=== PATIENT | male | born 1960 | race Caucasian/White ===

== ENCOUNTER 2017-12-13 17:38 | Emergency (ER) | payer OTHER ==
[~2017-12-13] VITALS: Ht 172.7 cm; Wt 72.6 kg
[~2017-12-13 17:38] MED LIST: BUPRENORPHINE HC8 MG SL; BUPROPION HCL75 M1 PO; GABAPENTIN400 M2 PO; SUBUTEX
[2017-12-13 18:43] LABS: ABSOLUTE BASOPHIL COUNT 0 /CUMM (0.0-0.2); ABSOLUTE EOSINOPHIL COUNT 0.1 /CUMM (0.0-0.7); ABSOLUTE GRANULOCYTE CT 3.5 /CUMM (1.4-6.5); ABSOLUTE LYMPH COUNT 1.7 /CUMM (1.2-3.4); ABSOLUTE MONOCYTE COUNT 0.4 /CUMM (0.10-0.60); BASOPHIL % 0.4 % (0.0-2.0); EOSINOPHIL % 2.1 % (0-5); HEMATOCRIT 42.1 % (42-52); MEAN CORPUSCULAR HGB 29.9 PG (27.0-31.0); MEAN CORPUSCULAR HGB CONC 33.8 G/DL (33.0-37.0); MEAN CORPUSCULAR VOLUME 88.4 FL (80.0-94.0); MEAN PLATELET VOLUME 8.4 FL (7.4-10.4); PLATELET COUNT 224 /CUMM (130-400); RBC DISTRIBUTION WIDTH 13.7 % (11.5-14.5); RED BLOOD CELL CT 4.76 /CUMM (4.70-6.10); WHITE BLOOD CELL COUNT 5.7 /CUMM (4.8-10.8)
[2017-12-13 18:50] LABS: PT 10.9 SEC (9.4-12.5); PTT 31 SEC (25-37)
--- NOTE | 2017-12-13 19:26 | RADIOLOGY REPORT ---
EXAMINATION: XR CHEST CLINICAL INFORMATION: Chest pain. Pneumonia. COMPARISON: None TECHNIQUE: 2 views of the chest were obtained. FINDINGS: No airspace opacities or pleural effusions are seen. The cardiomediastinal silhouette is normal. No acute osseous abnormality is seen. There is a rightward curvature of the thoracic spine and a leftward curvature of the lumbar spine. IMPRESSION: Clear lungs. No acute process. Thoracolumbar scoliosis.
--- NOTE | 2017-12-13 19:28 | ED CARDIAC/CP/PALPITATIONS ---
History of Present Illness General Chief Complaint: Chest Pain Stated Complaint: CHEST PAIN Source: patient Exam Limitations: no limitations Vital Signs & Intake/Output Vital Signs & Intake/Output Vital Signs Date Time Temp Pulse Resp B/P B/P Pulse O2 O2 Flow FiO2 Mean Ox Delivery Rate 12/13 2106 98.9 73 18 124/72 97 Room Air 12/14 2103 97 Room Air 12/13 1751 99.0 74 18 122/80 98 Room Air Allergies Coded Allergies: No Known Allergies (09/10/15) Reconcile Medications Buprenorphine (Buprenorphine HCl) 8 MG TAB.SUBL 1 TAB SL BID MENTAL HEALTH ( Reported) Core Measure Meds Pre-Hospital none Triage Note: STATES THAT HE WOKE THIS AM NOT FEELING WELL, STATES THAT HE HAS BEEN DIZZY SINCE, SLIGHT NAUSEA AND MID CP THAT RADIATES INTO BILATERAL ARMS, PAIN IS NOT REPRODUCIBLE Triage Nurses Notes Reviewed? yes Onset: Morning (I woke up this morning ) Duration: hour(s): Timing: multiple episodes today Quality/Severity: moderate Location: central Radiation: no radiation Activities at Onset: activity Prior Chest Pain/Card Workup: no prior chest pain, no prior cardiac workup Modifying Factors: Improves With: rest. Nitro Today/Relief: no nitro taken today Aspirin Today: no aspirin today HPI: I woke up this am not feeling well with dizziness and headache and sharp chest pain in seconds all over my chest and I felt like that all day. I am here to be checked. I almost fainted today. 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 Past History Travel History Traveled to [place] past 21 day No Medical History Blood Transfusion Hx: No Any Pertinent Medical History? 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 No Sexual History Sexual Orientation Heterosexual Employment History Employment Employed Review of Systems Review of Systems Constitutional: Reports: no symptoms, see HPI, weakness. Denies: chills, diaphoresis, fever, malaise. EENTM: Denies: no symptoms. Respiratory: Denies: no symptoms. Cardiovascular: Denies: see HPI. GI: Denies: no symptoms. Genitourinary: Denies: no symptoms. Musculoskeletal: Denies: no symptoms. Skin: Denies: no symptoms. Neurological/Psychological: Denies: no symptoms. Hematologic/Endocrine: Denies: no symptoms. Immunologic/Allergic: Denies: no symptoms. All Other Systems: Reviewed and Negative Physical Exam Physical Exam General Appearance: well developed/nourished, no apparent distress, alert, awake , anxious Head: atraumatic, normal appearance Eyes: Bilateral: normal appearance. Ears, Nose, Throat: normal pharynx, normal ENT inspection Neck: normal inspection, supple, full range of motion Respiratory: normal breath sounds, chest non-tender, no respiratory distress Cardiovascular: regular rate/rhythm Gastrointestinal: normal bowel sounds, soft, non-tender Back: normal inspection, normal range of motion Extremities: normal inspection, normal capillary refill Neurologic/Psych: no motor/sensory deficits, awake, alert, oriented x 3 Skin: intact, normal color Core Measures ACS in differential dx? No CVA/TIA Diagnosis No Sepsis Present: No Sepsis Focused Exam Completed? No Progress Differential Diagnosis: atypical chest pain Plan of Care: Orders Procedure Date/time Status MISTAKE 12/13 175 Active TROPONIN LEVEL 12/13 175 Complete PARTIAL THROMBOPLASTIN TIME 12/13 175 Complete PROTHROMBIN TIME 12/13 1754 Complete MAGNESIUM 12/13 175 Complete D-DIMER 12/13 175 Complete COMPREHENSIVE METABOLIC PANEL 12/13 175 Complete CBC WITHOUT DIFFERENTIAL 12/13 1753 Complete EKG 12/13 1738 Active Laboratory Tests 12/13/17 1826: Anion Gap 8, Estimated GFR > 60, BUN/Creatinine Ratio 28.3 H, Glucose 124 H, Calcium 9.7, Magnesium 1.9, Total Bilirubin 0.7, AST 39, ALT 98 H, Alkaline Phosphatase 58, Troponin I < 0.01, Total Protein 7.9, Albumin 4.6, Globulin 3.3, Albumin/Globulin Ratio 1.4, PT 10.9, INR 1.00, APTT 31, D-Dimer High Sensitivty < 200, CBC w Diff NO MAN DIFF REQ, RBC 4.76, MCV 88.4, MCH 29.9, MCHC 33.8, RDW 13.7, MPV 8.4, Gran % 61.0, Lymphocytes % 29.4, Monocytes % 7.1, Eosinophils % 2.1, Basophils % 0.4, Absolute Granulocytes 3.5, Absolute Lymphocytes 1.7, Absolute Monocytes 0.4, Absolute Eosinophils 0.1, Absolute Basophils 0 Diagnostic Imaging: Viewed by Me: CT Scan (neg). Radiology Impression: no acute abnormality CXR Impression: no acute abnormality Initial ED EKG: normal axis, normal intervals, NSR Departure Departure Time of Disposition: 2034 Disposition: HOME OR SELF CARE Condition: Stable Clinical Impression Primary Impression: Dizziness Secondary Impressions: Chest pain, atypical Referrals: Patient Has No Primary Care Dr (PCP/Family) He will get a hold of his own doctor Additional Instructions: return if worse , stay with family member next 3 days Departure Forms: Customer Survey General Discharge Information Critical Care Note Critical Care Note Critical Care Time: non-applicable ED Attending Observation Initial Observation Note: I have seen and personally examined HOLLIS GARCIA on 12/13/17 at 2052. I agree with the current emergency department documentation. The disposition (admission or discharge) is uncertain at this time, he needs a period of observation for the following reason(s): The ED Nurse caring for this patient has been personally informed as to what the patient is being observed for.
--- NOTE | 2017-12-13 19:40 | CT SCAN REPORT ---
EXAMINATION: CT HEAD WITHOUT CONTRAST CLINICAL INFORMATION: Dizziness. Headache. COMPARISON: None TECHNIQUE: Contiguous axial imaging was performed from the skull base to vertex without intravenous administration of contrast. DLP: 624.24 mGy-cm FINDINGS: There is no evidence of acute intracranial hemorrhage or territorial infarction. No abnormal mass effect or midline shift is seen. [place] to white matter differentiation is well preserved. No extra-axial fluid collections are identified. The ventricles are normal in size. There is no abnormal attenuation within the brain parenchyma. The osseous structures and soft tissues are normal. The mastoid air cells and visualized portions of the paranasal sinuses are well aerated. IMPRESSION: No acute intracranial pathology.
[2017-12-13 21:07] VITALS: BP 124/72
[2017-12-25] MEDS ORDERED: SUBOXONE 8 MG-1 EACH SL (18:18)
[2017-12-25] MEDS ORDERED: SEROQUEL50 M1 PO (18:19)
== END 2017-12-13 21:09 ==
LOC: ERH 17:38
PROVIDERS: Physician Assistant Medical
DX: R42 Dizziness and giddiness (principal); R07.89 Other chest pain
CPT/HCPCS: 71046; 93005; 93010